=== PATIENT | female | born 1940 | race Caucasian/White ===

== ENCOUNTER 2020-08-31 16:23 | Outpatient (CLI) | payer MEDICARE | END 2020-08-31 16:24 | disposition home or self-care (01) | LOC: CSHRAD 16:23 | PROVIDERS: ATTEND Physician Assistant | DX: M54.2 Cervicalgia (principal); M79.642 Pain in left hand; M47.812 Spondylosis without myelopathy or radiculopathy, cervical region; M79.89 Other specified soft tissue disorders | CPT/HCPCS: 72052 ==